=== PATIENT | male | born 1930 | race Caucasian/White ===

== ENCOUNTER 2019-07-10 17:30 | Inpatient (IN) | payer MEDICARE ==
[~2019-07-10] VITALS: Ht 172.7 cm; Wt 100.9 kg
[2019-07-10 18:08] LABS: BASOPHILS % (AUTO) 0.5 % (0-1); EOSINOPHILS % (AUTO) 0.3 % (0-6); HEMATOCRIT 39.7 % (42.0-52.0); HEMOGLOBIN 13.4 g/dl (14.0-17.9); LYMPHOCYTES # (AUTO) 0.9 X10'3 (1.1-4.8); MEAN CORPUSCULAR HEMOGLOBIN 32.7 PG (27.0-31.0); MEAN CORPUSCULAR HGB CONC 33.8 g/dL (33.0-36.5); MEAN CORPUSCULAR VOLUME 96.5 FL (78-98); MEAN PLATELET VOLUME 9.3 FL (7.4-10.4); MONOCYTES # (AUTO) 0.9 X10'3 (0-0.9); MONOCYTES % (AUTO) 9.3 % (2-12); NEUTROPHILS # (AUTO) 7.9 X10'3 (1.8-7.7); NEUTROPHILS % (AUTO) 80.9 % (42-75); PLATELET COUNT 234 X10'3 (140-440); RED BLOOD COUNT 4.11 X10'6 (4.70-6.10); RED CELL DISTRIBUTION WIDTH 13.9 % (11.5-14.5); WHITE BLOOD COUNT 9.8 X10'3 (4.5-11.0)
[2019-07-10] MEDS ORDERED: meclizine 12.5mg tablet PO ONE (18:25)
[2019-07-10 18:26] LABS: PARTIAL THROMBOPLASTIN TIME 27 SECONDS (22-32)
[2019-07-10 18:33] LABS: ALANINE AMINOTRANSFERASE 136 U/L (12-78); ALBUMIN 3.3 G/DL (3.4-5.0); ALBUMIN/GLOBULIN RATIO 0.7 (1.1-1.5); ALKALINE PHOSPHATASE 255 IU/L (46-116); ANION GAP 11 (8-16); ASPARTATE AMINO TRANSFERASE 254 U/L (10-37); BILIRUBIN,TOTAL 2.3 MG/DL (0.1-1.0); BLOOD UREA NITROGEN 9 MG/DL (7-18); BUN/CREATININE RATIO 10.5 (5.4-32.0); CALCIUM 7.9 MG/DL (8.5-10.1); CHLORIDE 96 MMOL/L (99-107); CREATININE 0.86 MG/DL (0.60-1.10); GLUCOSE 134 MG/DL (70-104); POTASSIUM 3.2 MMOL/L (3.5-5.1); SODIUM 135 MMOL/L (135-145); TOTAL CARBON DIOXIDE 27.6 MMOL/L (24-32); eGFR 84 ML/MIN
[2019-07-10] MEDS ORDERED: potassium Cl 20 mEq SR tablet PO PRN (21:00)
[2019-07-10] MEDS ORDERED: potassium CL 10mEq/100ml bag 100 ML IV PRN ×2 (21:00)
[2019-07-10] MEDS ORDERED: magnesium Cl slow-release 64mg tablet PO PRN (21:00)
[2019-07-10] MEDS ORDERED: ondansetron/PF 4mg/2ml inj IV PRN (21:00)
[2019-07-10] MEDS ORDERED: morphine 2 MG/ML inj. syringe IV PRN (21:00)
[2019-07-10] MEDS ORDERED: magnesium 4gm in 100ml NS 100 ML IV PRN (21:00)
[2019-07-10] MEDS ORDERED: magnesium 2GM in 50ml NS 50 ML IV PRN (21:00)
[2019-07-10] MEDS ORDERED: metroNIDAZOLE-Flagyl 500mg/NS 100 ML IV STA (21:02)
[2019-07-10] MEDS ORDERED: ciprofloxacin lact 400MG/200ML 200 ML IV SCH (21:05)
[2019-07-10] MEDS ORDERED: TIOT4MIS5 (21:40)
[2019-07-10] MEDS ORDERED: LEVO125T PO (21:40)
[2019-07-10] MEDS ORDERED: TERA1CAP4 PO (21:40)
[2019-07-10] MEDS ORDERED: AMLO5TAB4 PO (21:40)
[2019-07-10] MEDS ORDERED: VALS160T2 PO (21:40)
[2019-07-10] MEDS ORDERED: PANT-47 PO (21:40)
[2019-07-10] MEDS: normal saline 1000ml 1,000 ML IV SCH (21:44)
--- NOTE | 2019-07-10 22:00 | NUR ---
Patient resting comfortably on gurney, pending admit to the floor. I will continue to monitor.
[2019-07-10] MEDS: potassium Cl 20 mEq SR tablet PO PRN (23:38)
[2019-07-11] VITALS: BP 160/68
[2019-07-11 06:13] LABS: BASOPHILS % (AUTO) 0.2 % (0-1); EOSINOPHILS % (AUTO) 0.7 % (0-6); HEMATOCRIT 38.6 % (42.0-52.0); HEMOGLOBIN 13.1 g/dl (14.0-17.9); LYMPHOCYTES # (AUTO) 1.4 X10'3 (1.1-4.8); LYMPHOCYTES % (AUTO) 21.9 % (21-51); MEAN CORPUSCULAR HEMOGLOBIN 32.7 PG (27.0-31.0); MEAN CORPUSCULAR VOLUME 96.1 FL (78-98); MEAN PLATELET VOLUME 9.7 FL (7.4-10.4); MONOCYTES # (AUTO) 0.7 X10'3 (0-0.9); MONOCYTES % (AUTO) 10.7 % (2-12); NEUTROPHILS # (AUTO) 4.1 X10'3 (1.8-7.7); NEUTROPHILS % (AUTO) 66.5 % (42-75); PLATELET COUNT 209 X10'3 (140-440); RED BLOOD COUNT 4.02 X10'6 (4.70-6.10); RED CELL DISTRIBUTION WIDTH 13.9 % (11.5-14.5); WHITE BLOOD COUNT 6.2 X10'3 (4.5-11.0)
--- NOTE | 2019-07-11 06:24 | NUR ---
Problems reprioritized. Patient report given, questions answered & plan of care reviewed with Poornima MEADOWS.
[2019-07-11 06:41] LABS: ALANINE AMINOTRANSFERASE 116 U/L (12-78); ALBUMIN 2.8 G/DL (3.4-5.0); ALBUMIN/GLOBULIN RATIO 0.7 (1.1-1.5); ALKALINE PHOSPHATASE 233 IU/L (46-116); ANION GAP 8 (8-16); ASPARTATE AMINO TRANSFERASE 136 U/L (10-37); BLOOD UREA NITROGEN 4 MG/DL (7-18); BUN/CREATININE RATIO 5.1 (5.4-32.0); CALCIUM 7.5 MG/DL (8.5-10.1); CHLORIDE 99 MMOL/L (99-107); CREATININE 0.79 MG/DL (0.60-1.10); GLUCOSE 92 MG/DL (70-104); MAGNESIUM 1.5 MG/DL (1.5-2.4); SODIUM 137 MMOL/L (135-145); TOTAL CARBON DIOXIDE 30.3 MMOL/L (24-32); TOTAL PROTEIN 7.1 G/DL (6.4-8.2); eGFR > 90 ML/MIN
[2019-07-11 08:00] VITALS: BP_SYST 131; BP_SYST 155; BP_SYST 165; BP_DIAS 63; BP_DIAS 65; BP_DIAS 68
[2019-07-11] MEDS: normal saline 1000ml 1,000 ML IV SCH ×2 (08:25→19:50)
[2019-07-11] MEDS: levoTHYROXINE 125mcg tablet PO SCH (08:25)
[2019-07-11] MEDS: potassium Cl 20 mEq SR tablet PO PRN ×2 (08:25→21:30)
[2019-07-11] MEDS: pantoprazole 40mg Tablet.DR PO SCH ×2 (08:25→20:00)
[2019-07-11] MEDS: amLODIPine 5mg tablet PO SCH (08:25)
[2019-07-11] MEDS: K and/or MAG REPLACEMENT MC SCH (08:26)
[2019-07-11] MEDS: CefTRIAXone/D5W-Rocephin 1gm 50 ML IV SCH (08:26)
[2019-07-11 11:00] VITALS: BP 161/65
--- NOTE | 2019-07-11 18:30 | NUR ---
Patient in room [facility]. I have received report from Poornima MEADOWS and had the opportunity to ask questions and assume patient care. Pt sitting laying down, resting. No signs of distress at this time, will continue to monitor.
[2019-07-11] MEDS: lactobacillus rhamnosus 10,000 MMU CELLS/CAPSULE PO SCH (20:00)
[2019-07-11 21:09] VITALS: BP 163/76
[2019-07-11] MEDS: losartan 50mg tablet PO SCH (21:29)
[2019-07-11] MEDS: Terazosin 1mg capsule PO SCH (21:29)
[2019-07-11] MEDS: meclizine 12.5mg tablet PO PRN (21:39)
[2019-07-11 23:58] VITALS: BP 148/79
[2019-07-12] MEDS: normal saline 1000ml 1,000 ML IV SCH ×3 (02:56→23:22)
[2019-07-12 04:59] LABS: BASOPHILS % (AUTO) 0.4 % (0-1); EOSINOPHILS # (AUTO) 0.2 X10'3 (0-0.9); HEMATOCRIT 39.9 % (42.0-52.0); HEMOGLOBIN 13.4 g/dl (14.0-17.9); LYMPHOCYTES # (AUTO) 1.4 X10'3 (1.1-4.8); LYMPHOCYTES % (AUTO) 26.4 % (21-51); MEAN CORPUSCULAR HEMOGLOBIN 33.1 PG (27.0-31.0); MEAN CORPUSCULAR HGB CONC 33.7 g/dL (33.0-36.5); MEAN CORPUSCULAR VOLUME 98.2 FL (78-98); MEAN PLATELET VOLUME 9.5 FL (7.4-10.4); MONOCYTES # (AUTO) 0.7 X10'3 (0-0.9); MONOCYTES % (AUTO) 13.2 % (2-12); PLATELET COUNT 197 X10'3 (140-440); RED BLOOD COUNT 4.06 X10'6 (4.70-6.10); RED CELL DISTRIBUTION WIDTH 14.5 % (11.5-14.5); WHITE BLOOD COUNT 5.3 X10'3 (4.5-11.0)
[2019-07-12 05:25] LABS: ALANINE AMINOTRANSFERASE 88 U/L (12-78); ALBUMIN 2.8 G/DL (3.4-5.0); ALBUMIN/GLOBULIN RATIO 0.6 (1.1-1.5); ALKALINE PHOSPHATASE 215 IU/L (46-116); ANION GAP 10 (8-16); ASPARTATE AMINO TRANSFERASE 70 U/L (10-37); BILIRUBIN,TOTAL 1.7 MG/DL (0.1-1.0); BLOOD UREA NITROGEN 7 MG/DL (7-18); BUN/CREATININE RATIO 9.2 (5.4-32.0); CALCIUM 7.9 MG/DL (8.5-10.1); CHLORIDE 102 MMOL/L (99-107); CREATININE 0.76 MG/DL (0.60-1.10); GLUCOSE 87 MG/DL (70-104); MAGNESIUM 1.6 MG/DL (1.5-2.4); POTASSIUM 3.6 MMOL/L (3.5-5.1); SODIUM 137 MMOL/L (135-145); TOTAL PROTEIN 7.2 G/DL (6.4-8.2); eGFR > 90 ML/MIN
--- NOTE | 2019-07-12 06:14 | NUR ---
Problems reprioritized. Patient report given, questions answered & plan of care reviewed with Suha MEADOWS.
[2019-07-12 07:00] VITALS: BP 150/60
[2019-07-12] MEDS: K and/or MAG REPLACEMENT MC SCH (07:47)
[2019-07-12] MEDS: pantoprazole 40mg Tablet.DR PO SCH ×2 (08:05→20:05)
[2019-07-12] MEDS: lactobacillus rhamnosus 10,000 MMU CELLS/CAPSULE PO SCH ×2 (08:05→20:05)
[2019-07-12] MEDS: levoTHYROXINE 125mcg tablet PO SCH (08:06)
[2019-07-12] MEDS: meclizine 12.5mg tablet PO PRN (08:06)
[2019-07-12] MEDS: amLODIPine 5mg tablet PO SCH (08:06)
[2019-07-12] MEDS: CefTRIAXone/D5W-Rocephin 1gm 50 ML IV SCH (08:10)
--- NOTE | 2019-07-12 18:12 | NUR ---
Problems reprioritized. Patient report given, questions answered & plan of care reviewed with Kerri MEADOWS.
--- NOTE | 2019-07-12 18:23 | NUR ---
Patient in room [facility]. I have received report from Suha MEADOWS and had the opportunity to ask questions and assume patient care.
[2019-07-12 20:00] VITALS: BP 141/56
[2019-07-12] MEDS: heparin, porcine 5000 units/ml vial SQ SCH (20:05)
[2019-07-12] MEDS: Terazosin 1mg capsule PO SCH (20:05)
[2019-07-12] MEDS: losartan 50mg tablet PO SCH (20:05)
[2019-07-12 21:03] VITALS: BP 141/56
[2019-07-13] VITALS: BP 132/69
[2019-07-13 04:50] LABS: BASOPHILS % (AUTO) 0.5 % (0-1); EOSINOPHILS # (AUTO) 0.2 X10'3 (0-0.9); EOSINOPHILS % (AUTO) 4.3 % (0-6); HEMOGLOBIN 12.5 g/dl (14.0-17.9); LYMPHOCYTES # (AUTO) 1.2 X10'3 (1.1-4.8); LYMPHOCYTES % (AUTO) 25.6 % (21-51); MEAN CORPUSCULAR HEMOGLOBIN 32.9 PG (27.0-31.0); MEAN CORPUSCULAR HGB CONC 33.9 g/dL (33.0-36.5); MEAN CORPUSCULAR VOLUME 97.1 FL (78-98); MEAN PLATELET VOLUME 9.4 FL (7.4-10.4); MONOCYTES # (AUTO) 0.6 X10'3 (0-0.9); NEUTROPHILS # (AUTO) 2.8 X10'3 (1.8-7.7); NEUTROPHILS % (AUTO) 57.6 % (42-75); PLATELET COUNT 204 X10'3 (140-440); RED BLOOD COUNT 3.81 X10'6 (4.70-6.10); RED CELL DISTRIBUTION WIDTH 14.2 % (11.5-14.5); WHITE BLOOD COUNT 4.9 X10'3 (4.5-11.0)
[2019-07-13 05:20] LABS: ALANINE AMINOTRANSFERASE 54 U/L (12-78); ALBUMIN 2.5 G/DL (3.4-5.0); ALBUMIN/GLOBULIN RATIO 0.7 (1.1-1.5); ALKALINE PHOSPHATASE 165 IU/L (46-116); ANION GAP 10 (8-16); ASPARTATE AMINO TRANSFERASE 33 U/L (10-37); BILIRUBIN,TOTAL 1.2 MG/DL (0.1-1.0); BLOOD UREA NITROGEN 6 MG/DL (7-18); BUN/CREATININE RATIO 7.7 (5.4-32.0); CALCIUM 7.4 MG/DL (8.5-10.1); CHLORIDE 103 MMOL/L (99-107); CREATININE 0.78 MG/DL (0.60-1.10); GLUCOSE 87 MG/DL (70-104); MAGNESIUM 1.4 MG/DL (1.5-2.4); POTASSIUM 3.1 MMOL/L (3.5-5.1); SODIUM 138 MMOL/L (135-145); TOTAL CARBON DIOXIDE 25.4 MMOL/L (24-32); TOTAL PROTEIN 6.2 G/DL (6.4-8.2); eGFR > 90 ML/MIN
--- NOTE | 2019-07-13 06:29 | NUR ---
Problems reprioritized. Patient report given, questions answered & plan of care reviewed with Poornima MEADOWS.
[2019-07-13 07:29] VITALS: BP 129/73
[2019-07-13] MEDS: pantoprazole 40mg Tablet.DR PO SCH (07:44)
[2019-07-13] MEDS: amLODIPine 5mg tablet PO SCH (07:44)
[2019-07-13] MEDS: lactobacillus rhamnosus 10,000 MMU CELLS/CAPSULE PO SCH (07:44)
[2019-07-13] MEDS: levoTHYROXINE 125mcg tablet PO SCH (07:44)
[2019-07-13] MEDS: heparin, porcine 5000 units/ml vial SQ SCH (07:45)
[2019-07-13] MEDS: CefTRIAXone/D5W-Rocephin 1gm 50 ML IV SCH (07:45)
[2019-07-13] MEDS: K and/or MAG REPLACEMENT MC SCH (08:06)
[2019-07-13] MEDS: normal saline 1000ml 1,000 ML IV SCH (08:56)
[2019-07-13] MEDS ORDERED: LACT1CAP26 PO (09:09)
[2019-07-13] MEDS ORDERED: METR500T PO (09:09)
[2019-07-13] MEDS ORDERED: CEFD300C3 PO (09:09)
[2019-07-13] MEDS ORDERED: MECL12.584 PO (09:09)
--- NOTE | 2019-07-13 09:09 | NUR ---
Student Medication Administration: For this medication-pass time frame, all medication were reviewed, dispensed, administered and documented per hospital policy by [facility].
[2019-07-13] MEDS: potassium Cl 20 mEq SR tablet PO PRN ×2 (10:10→12:29)
[2019-07-13 10:57] VITALS: BP 154/71
== END 2019-07-13 12:50 | disposition home or self-care (01) | DRG 446 ==
LOC: ER 17:31 → EDBEDREQSVC 22:38 → SUR 3N 23:08
PROVIDERS: ADMIT Internal Medicine; ATTEND Family Medicine
DX: K80.62 Calculus of gallbladder and bile duct with acute cholecystitis without obstruction (principal); E89.0 Postprocedural hypothyroidism; H81.10 Benign paroxysmal vertigo, unspecified ear; I11.0 Hypertensive heart disease with heart failure; I50.9 Heart failure, unspecified; E87.6 Hypokalemia; E04.9 Nontoxic goiter, unspecified; J44.9 Chronic obstructive pulmonary disease, unspecified; K21.9 Gastro-esophageal reflux disease without esophagitis; N40.0 Benign prostatic hyperplasia without lower urinary tract symptoms; Z87.891 Personal history of nicotine dependence; Z98.49 Cataract extraction status, unspecified eye
CPT/HCPCS: 36415; 70450; 70551; 71045; 74181; 76700; 80053; 83735; 84443; 84484; 85025; 85610; 85730; 87081; 87088; 93005; 96365; 97112; 97116; 97161; 97530; 99285; G0378; J0696; J0744; J1644; J2270; J3475; J3480; J3490; J7030; J8597